=== PATIENT | female | born 1975 | race Hispanic/Latino ===

== ENCOUNTER 2017-08-31 14:37 | Observation (INO) | payer SELFPAY ==
[~2017-08-31 14:37] MED LIST: ISOVUE-370 76%-LOCM 1 ML ONE
[2017-08-31] MEDS ORDERED: Lorazepam 2 MG/ML VIAL ONE (15:00)
[2017-08-31 15:13] LABS: #Basophils 0.1 thou/uL (0.0-0.2); #Lymphocytes 2.7 thou/uL (1.20-3.40); #Monocytes 0.7 thou/uL (0.11-0.59); #Neutrophils 8.3 thou/uL (1.40-6.50); %Basophils 0.6 % (0.0-1.0); %Eosinophils 0.2 % (0.0-10.0); %Lymphocytes 22.6 % (21.0-51.0); %Monocytes 6.2 % (0.0-10.0); Hematocrit 44.6 % (36.0-47.0); Red Blood Cell (RBC) Count 5.27 mill/uL (4.20-5.40); White Blood Cell (WBC) Count 11.8 thou/uL (4.8-10.8)
[2017-08-31 15:28] LABS: ALT (SGPT) 890 U/L (8-55); AST (SGOT) 357 U/L (5-34); Alkaline Phosphatase 313 U/L (40-150); Anion Gap 19 mmol/L (10-20); BUN (Urea Nitrogen) 13 mg/dL (7.0-18.7); Bilirubin, Total 3.1 mg/dL (0.2-1.2); CK (CPK) 52 U/L (29-168); Calc. Creatinine Clearance 0 mL/min (70-130); Carbon Dioxide 22 mmol/L (22-29); Chloride 100 mmol/L (98-107); Estimated GFR-MDRD 88; Globulin 3.7 g/dL (2.4-3.5); Protein, Total 7.9 g/dL (6.0-8.3)
[2017-08-31] MEDS ORDERED: Potassium Chloride 20 MEQ TAB ONE (15:50)
[2017-08-31] MEDS ORDERED: Ondansetron HCl/PF 4 MG/2 ML Vial ONE (15:50)
--- NOTE | 2017-08-31 16:11 | CT ---
CT ABDOMEN AND PELVIS WITH IV CONTRAST: Date: 08/31/17 HISTORY: Abdominal pain. Recent cholecystectomy. FINDINGS: Lung bases are clear. The gallbladder is surgically absent. There is distention of the intrahepatic biliary system. Common bile duct is 1.1 cm diameter. Postoperative changes of the anterior abdominal wall and intra-abdominal fat are apparent. Fat protrudes into an umbilical hernia. Follicles arise from the ovaries. Urinary bladder is incompletely distended. IMPRESSION: 1. Biliary distention is greater than would normally be expected in a recent status post cholecyste ctomy patient. Clinical correlation regarding other signs and symptoms of central biliary obstructio n is required. Gastroenterologic consult could be considered. 2. Fat-containing umbilical hernia. POS: RANDEE
[2017-08-31 16:29] LABS: Bilirubin Negative (Negative); Blood, Urine Small (Negative); Glucose, Urine (Dipstick) Negative (Negative); Ketone, Urine 40 mg/dL (Negative); Nitrite Negative (Negative); Protein, Urine (Dipstick) Negative (Neg-Trace)
[2017-08-31 16:31] LABS: Bacteria/HPF None Seen HPF (None Seen); Hyaline Casts/LPF 0-3 HYALINE CAST LPF (0-3 Hyaline); RBC/HPF 0-3 HPF (0-3); Squamous Epithelial 0-3 HPF (0-3); WBC/HPF 0-3 HPF (0-3)
[2017-08-31 16:38] LABS: Amphetamine Not Detected (NotDetected); Methadone Not Detected (NotDetected); Methamphetamine Not Detected (NotDetected)
[2017-08-31] MEDS ORDERED: Ondansetron HCl/PF 4 MG/2 ML Vial IVP PRN (18:22)
[2017-08-31] MEDS ORDERED: Sodium Chloride 0.9% 1,000 ML IV SCH (18:30)
--- NOTE | 2017-08-31 19:53 | HP ---
PRIMARY CARE PHYSICIAN: Darleen Klein M.D. CHIEF COMPLAINT: Abdominal pain. HISTORY OF PRESENT ILLNESS: Ms. Oneil is a pleasant 42-year-old lady who was seen at [facility] on 08/31/2017. She initially presented to the emergency room in [facility] to severe abdominal pain. She has now received pain medications and has slightly improved. She reports that 6 days ago she developed right upper quadrant pain. She describes the pain as a sh shlomo, cannot 10/10 at its worst, on and off, worse with eating, no known relieving factors, radiating to the back and accompanied by nausea and vomiting. She was seen at [facility] and was subsequently referred to [facility]. The next day, she underwent laparoscopic cholecystect manuelito. She reports that the pain was not really improved following the surgery. She denies any fever s. She reports that the pain is still intermittent, as described above. She came to the emergency room today because she was having ongoing pain. REVIEW OF SYSTEMS: The following complete review of systems was negative, unless otherwise mentione d in the HPI or below: Constitutional: Weight loss or gain, sense of well-being, ability to conduct usual activities, exer cise tolerance. Skin/Breast: Rash, itching, changes in hair growth or loss, nail changes, breast lumps, tenderness, swelling, nipple discharge. Eyes: Vision, double vision, tearing, blind spots, pain. ENT/Mouth: Headaches (location, time of onset, duration, precipitating factors), vertigo, lighthead edness, injury. Vision, double vision, tearing, blind spots, pain, nose bleeding, colds, obstruction , discharge, dental difficulties, gingival bleeding, dentures, neck stiffness, pain, tenderness, mas ses in thyroid or other areas. Cardiovascular: Precordial pain, substernal distress, palpitations, syncope, dyspnea on exertion, o rthopnea, nocturnal paroxysmal dyspnea, edema, cyanosis, hypertension, heart murmurs, varicosities, phlebitis, claudication. Respiratory: Pain, shortness of breath, wheezing, stridor, cough, hemoptysis, fever or night sweats . Gastrointestinal: Poor appetite, dysphagia, indigestion, abdominal pain, heartburn, eructation, lora sea, vomiting, hematemesis, jaundice, constipation, or diarrhea, abnormal stools (kale-colored, norberto y, bloody, greasy, foul smelling), flatulence, hemorrhoids, recent changes in bowel habits. Genitourinary: Urgency, frequency, dysuria, nocturia, hematuria, polyuria, oliguria, unusual (or ch rubne in) color of urine, stones, hesitancy, change in size of stream, dribbling, acute retention or incontinence, libido, potency. Musculoskeletal: Pain, swelling, redness or heat of muscles or joints, limitation, of motion, muscu lar weakness, atrophy, cramps. Neurologic/Psychiatric: Convulsions, paralyses, tremor, incoordination, paresthesias, difficulties with memory of speech, sensory or motor disturbances, or muscular coordination (ataxia, tremor), emo tional problems, anxiety, depression, previous psychiatric care, unusual perceptions, hallucinations . Allergy/Immunologic: Skin rash, anemia, bleeding tendency, polydipsia, polyuria, intolerance to hea t or cold. PAST MEDICAL HISTORY: Significant for cholecystitis, status post laparoscopic cholecystectomy; and a skin disorder for which she has been diagnosed in the past with eczema versus fungal infection alana miladys psoriasis. PAST SURGICAL HISTORY: Significant for laparoscopic cholecystectomy and appendectomy. PSYCHIATRIC HISTORY: None. FAMILY HISTORY: Significant for coronary artery disease in several family members. SOCIAL HISTORY: The patient denies tobacco use, alcohol use or recreational drug use. ALLERGIES: PHENERGAN. CURRENT MEDICATIONS: None. PHYSICAL EXAMINATION: GENERAL: On examination, Ms. Oneil is awake and alert, not in acute distress. VITAL SIGNS: Blood pressure is 110/63, pulse is 83. She is breathing at rate of 16, and saturating 94% on room air. She is afebrile. EYES: She has scleral icterus. No conjunctival pallor. ENT: Moist mucosal membranes, no oropharyngeal erythema or exudates. NECK: Supple, nontender, normal range of movement, trachea is midline. RESPIRATORY: Accessory muscles of breathing are not active. Chest wall movements are symmetric leidy aterally. LUNGS: Clear to auscultation without wheeze, rhonchi or crepitations. CARDIOVASCULAR: S1 and S2 are heard, regular. LUNGS: Peripheral pulses palpable. No pericardial rub, no carotid bruit. ABDOMEN: Mild right upper quadrant tenderness, no guarding or rigidity, bowel sounds heard, no hepa tomegaly, no splenomegaly. NEUROLOGIC: Cranial nerves II-XII are intact. Deep tendon reflexes are 2+. MUSCULOSKELETAL: Power is 5/5 in all 4 extremities, normal range of movement at all major extremity joints. SKIN: No rashes or subcutaneous nodules. LYMPHATIC: No cervical lymphadenopathy. PSYCHIATRIC: Normal mood, normal affect, patient is oriented to time, place, and person. LABORATORY DATA AND IMAGING: Ms. Oneil' labs and investigations were reviewed. She had an magaly ctrocardiogram, which shows normal sinus rhythm, no ST changes to suggest an acute coronary syndrome . She also had a CT scan of the abdomen and pelvis, which showed biliary distention that is greater than normally expected in a recent status post cholecystectomy patient, according to radiologist. Laboratory investigation show a normal sodium, decreased potassium of 3.1, elevated total bilirubin of 3.1, elevated AST of 357, elevated ALT of 890, elevated alkaline phosphatase of 313, normal creat ine kinase, leukocytosis with 11,800 white cells, of which 70% are neutrophils, normal hemoglobin, n ormal platelet count. Urinalysis positive for ketones and small amount of blood and urine toxicolog y screen positive for benzodiazepines. ASSESSMENT AND PLAN: Ms. Oneli is a pleasant 42-year-old lady who was seen at [facility] on 08/31/2017. Her problem list includes: 1. Abdominal pain: The etiology is unclear, could be secondary to choledocholithiasis from retaine d gallstones. She will be admitted to the hospital and treated with pain medications. Gastroentero logy service will be consulted for further opinion and help with further management. 2. Abnormal liver function tests: Likely secondary to choledocholithiasis. She is not febrile at this time. Postoperative infection is also a possibility, given leukocytosis. We will start Ms. Magdiel saenz on empiric antibiotics. 3. Hypokalemia: Replace potassium. Many thanks for allowing me to participate in your patient's care. Please feel free to contact me w ith any questions or concerns. LEVEL OF RISK: Moderate. LEVEL OF COMPLEXITY: Moderate.
[2017-08-31] MEDS: Ketorolac Tromethamine 30 MG/ML VIAL IVP PRN (20:04)
[2017-08-31] MEDS: NS 0.9% w/ 40 MEQ KCL 1,000 ML IV SCH (20:08)
[2017-08-31] MEDS: metroNIDAZOLE 500 MG in Premix Bag 1 BAG IVPB SCH (20:09)
[2017-08-31] MEDS ORDERED: cefTRIAXone\\ROCEPHIN 1 GM in Sodium Chloride 0.9% 100 ML IVPB SCH (21:00)
[2017-08-31 22:40] VITALS: BMI 39.9
--- NOTE | 2017-08-31 23:18 | CON ---
GI INPATIENT CONSULTATION NOTE DATE OF CONSULTATION: 08/31/2017 REQUESTING PHYSICIAN: Alonzo Rachel M.D. REASON FOR CONSULTATION: Probable choledocholithiasis. HISTORY OF PRESENT ILLNESS: Ms. Ned Oneil is a 42-year-old woman with the past medical hi story of appendectomy. She underwent laparoscopic cholecystectomy at the [facility] 4 days ago. She recalls that she had fairly acute onset of right upper quadrant abdominal pain radiating t o the back associated with nausea and vomiting and was found to have cholelithiasis and cholecystiti s and the following day as an outpatient underwent laparoscopic cholecystectomy. She was discharged home the same day with pain medications, but she reports that her presenting pain never really reso lved at all. She continued to have pain, nausea and vomiting. This acutely worsened even more toda y and she also noticed darkening of her urine, so she presented to the Emergency Department here. L aboratory evaluation demonstrated elevated liver function tests with a total bilirubin of 3.1 and T up to 890. She also has a mild leukocytosis to 11.[address] imaging demonstrates biliary dilation to 1.1 cm with intrahepatic biliary dilation as well, certainly greater than expected for recent cho lecystectomy. She is admitted with suspicion of choledocholithiasis and we are consulted for consid eration of endoscopic retrograde cholangiopancreatography. She has currently received Toradol, ceft riaxone and metronidazole. Her pain is a bit better, but she is still hurting. REVIEW OF SYSTEMS: Full review of systems including constitutional, head, eyes, ears, nose, throat, GI, , cardiovascular, respiratory, musculoskeletal and neurologic systems are negative except as noted in the HPI. PAST MEDICAL HISTORY: Appendectomy and cholecystectomy on 08/27/2017. ALLERGIES: PROMETHAZINE. OUTPATIENT MEDICATIONS: None. INPATIENT MEDICATIONS: Ceftriaxone IV, metronidazole IV, Toradol and Zofran. SOCIAL HISTORY: No smoking, alcohol or drug use. FAMILY HISTORY: Noncontributory. PHYSICAL EXAMINATION: VITAL SIGNS: Temperature 98.2, pulse 94 and 98% oxygen saturation on room air. GENERAL: A 42-year-old woman lying in bed in mild discomfort from abdominal pain MENTAL: Alert and fully oriented, pleasant and conversational, gives a detailed coherent history. SKIN: No rashes were palpable. No jaundice. EYES: Mild scleral icterus. Extraocular movements are intact. ENT: Mucous membranes are moist. No oral lesions. LYMPH: No submandibular or supraclavicular lymphadenopathy. THYROID: Nontender to palpation. HEART: Regular rate and rhythm. LUNGS: Clear to auscultation bilaterally. ABDOMEN: Bowel sounds are hypoactive and nondistended. Surgical incisions healing well, soft, tend er to palpation in the right upper quadrant. No guarding or rebound tenderness. EXTREMITIES: No peripheral edema. VESSELS: Radial pulses 2+ bilaterally. NEUROLOGICAL: Cranial nerves II-XII are intact bilaterally. No focal deficits. LABORATORY STUDIES: WBC 11.8, hemoglobin 14.5 and platelets 382. Sodium 138, potassium 3.1, BUN 13 , creatinine 0.73, total bilirubin 3.1, alkaline phosphatase 313, AST 890, ALT 357 and albumin 4.2. Urinalysis negative. Urine drug screen positive for benzodiazepines. IMAGING STUDIES: CT of the abdomen demonstrates biliary dilation to 1.1 cm with intrahepatic dilati on, greater degree of dilation than expected for recent cholecystectomy. She also has a fat contain ing umbilical hernia. ASSESSMENT AND PLAN: 1. Right upper quadrant abdominal pain, post cholecystectomy. 2. Elevated liver function tests. 3. Common bile duct dilation. Her presentation is certainly consistent with a high probability of choledocholithiasis. I suspect retained stone or sludge in the distal common bile duct. We will plan to proceed with endoscopic re trograde cholangiopancreatography tomorrow. I discussed the procedure in detail with the patient in cluding the risks of the procedure, which would include post-endoscopic retrograde cholangiopancreat ography pancreatitis, bleeding or perforation or failure of the procedure. The patient desires to p roceed. In the meantime, continue with pain control and I agree with the IV antibiotics as well giv en the leukocytosis. Further recommendations following endoscopic retrograde cholangiopancreatograp hy tomorrow. Thank you for the consultation. Please call back with questions or concerns.
[2017-09-01] MEDS: metroNIDAZOLE 500 MG in Premix Bag 1 BAG IVPB SCH ×2 (03:35→12:37)
[2017-09-01] MEDS: Ketorolac Tromethamine 30 MG/ML VIAL IVP PRN (03:35)
[2017-09-01 05:47] LABS: #Basophils 0.1 thou/uL (0.0-0.2); #Lymphocytes 2.5 thou/uL (1.20-3.40); #Monocytes 0.7 thou/uL (0.11-0.59); #Neutrophils 5.4 thou/uL (1.40-6.50); %Basophils 0.8 % (0.0-1.0); %Eosinophils 0.5 % (0.0-10.0); %Lymphocytes 28.5 % (21.0-51.0); %Monocytes 8.1 % (0.0-10.0); Hematocrit 40.5 % (36.0-47.0); Mean Platelet Volume 6.9 fL (7.4-10.4); Red Blood Cell (RBC) Count 4.71 mill/uL (4.20-5.40); White Blood Cell (WBC) Count 8.7 thou/uL (4.8-10.8)
[2017-09-01 06:02] LABS: Anion Gap 11 mmol/L (10-20); BUN (Urea Nitrogen) 11 mg/dL (7.0-18.7); Calc. Creatinine Clearance 195 mL/min (70-130); Calcium 9.1 mg/dL (7.8-10.44); Carbon Dioxide 27 mmol/L (22-29); Chloride 104 mmol/L (98-107); Estimated GFR-MDRD Greater than 90
[2017-09-01 06:06] LABS: ALT (SGPT) 734 U/L (8-55); AST (SGOT) 232 U/L (5-34); Alkaline Phosphatase 279 U/L (40-150); Bilirubin, Direct 0.7 mg/dL (0.1-0.3); Bilirubin, Total 1.2 mg/dL (0.2-1.2); Lipase 17 U/L (8-78); Protein, Total 6.5 g/dL (6.0-8.3)
[2017-09-01] MEDS ORDERED: FLU VACC QS2017-18 36 mo. & older 0.5 ML SYRINGE IM ONE (09:00)
[2017-09-01] MEDS: NS 0.9% w/ 40 MEQ KCL 1,000 ML IV SCH ×2 (10:34→22:29)
[2017-09-01] MEDS ORDERED: Fentanyl 100 MCG/2 ML VIAL ONE ×2 (11:49→12:09)
[2017-09-01] MEDS ORDERED: Iothalamate Meglumine 60% 50 ML VIAL FS ONE (11:55)
[2017-09-01] MEDS ORDERED: Midazolam HCl 2 mg/2 ml Vial ONE (12:01)
[2017-09-01] MEDS ORDERED: Indomethacin 50 MG SUPP ONE ×2 (12:20→12:41)
[2017-09-01] MEDS ORDERED: Propofol 200 MG/20 ML VIAL ONE (12:25)
[2017-09-01] MEDS ORDERED: Ondansetron HCl/PF 4 MG/2 ML Vial ONE (12:25)
[2017-09-01] MEDS ORDERED: Ketorolac Tromethamine 30 MG/ML VIAL ONE (12:25)
[2017-09-01] MEDS ORDERED: Glycopyrrolate 0.2 MG/ML 5 ML SYRINGE ONE (12:25)
[2017-09-01] MEDS ORDERED: Lidocaine 2% PF 10 ML AMP (For Epidural Use) ONE (12:25)
[2017-09-01] MEDS ORDERED: Lidocaine 1% PF 5 ML VIAL ONE (12:41)
[2017-09-01] MEDS ORDERED: Ondansetron HCl/PF 4 MG/2 ML Vial IVP PRN (13:24)
[2017-09-01] MEDS ORDERED: Meperidine HCl/PF 25 MG/ML VIAL SLOW IVP PRN (13:24)
--- NOTE | 2017-09-01 13:37 | OP ---
GI ENDOSCOPY NOTE DATE OF PROCEDURE: 09/01/2017 SURGEON: Alonzo Smalls M.D. HARD [employer] HAND ENGRAVER SURGEON: None. PROCEDURE: Endoscopic retrograde cholangiopancreatography with biliary sphincterotomy and stone ext raction. INDICATIONS: 1. Right upper quadrant pain. 2. Elevated liver function tests. 3. Common bile duct dilation, suspicious for choledocholithiasis. MEDICATIONS: 1. See anesthesia record. 2. Indomethacin 100 mg per rectum. FINDINGS: After discussion of the risks, benefits and alternatives of the procedure, informed conse nt was obtained and witnessed. Pre-endoscopic cardiopulmonary examination was satisfactory. Timeou t was performed before sedation was achieved. Sedation was achieved with anesthesia assistance in [facility] endoscopy unit. The patient was endotracheally intubated. She was placed in a semiprone positio n on the fluoroscopy table. A Pentax adult side-viewing duodenoscope was advanced through the mouth and beyond the stomach into the second portion of the duodenum. The ampulla was brought into view with the endoscope in the short position. The ampulla appeared normal. There was some free flow of bile seen prior to cannulation. We used a triple lumen dome tip sphincterotome and 0.035 guidewire to selectively cannulate the common bile duct. The guidewire was passed up into the right intrahep atic system. Cholangiogram was then performed. This demonstrated what appeared to be two larger fi lling defects within the mid common bile duct as well as a suggestion of smaller filling defects rep resenting sludge in the distal common bile duct. At this point, a biliary sphincterotomy was perfor med. The sphincterotome was exchanged for an 8-12 mm extraction balloon. Multiple sweeps were made of the common bile duct with the balloon partially and fully inflated. In this fashion, we success fully extracted some biliary sludge as well as 2 yellow pigmented stones from the common bile duct. Occlusion cholangiogram appear to demonstrate no further filling defects in the common bile duct. One final balloon sweep was made of the common bile duct to sweep out excess contrast agent. The wo rking apparatus was then withdrawn. The endoscope was then withdrawn suctioning out excess air and fluid and the procedure was complete. The patient received 100 mg of rectal indomethacin as prophyl axis against post-ERCP pancreatitis. She tolerated the procedure well. There were no immediate pos t-procedure complications. IMPRESSION: Choledocholithiasis, now status post successful biliary sphincterotomy and balloon extr action of sludge and 2 yellow pigmented stones. RECOMMENDATIONS: 1. Clear liquid diet, then advance as tolerated later today. 2. Monitor for potential post-ERCP complications, including pancreatitis.
--- NOTE | 2017-09-01 13:38 | RAD ---
TWO VIEWS ABDOMEN: HISTORY: A 42-year-old who is having an ERCP. FINDINGS: Two intraoperative images obtained demonstrate catheterization and injection of the common bile duct . There is some debris seen in the distal common bile duct. The balloon is insufflated and the kuldip ris is stripped out of the distal common bile duct. Surgical clips seen in the gallbladder fossa. IMPRESSION: Findings compatible with distal common bile duct debris including sludge and/or stones. POS: RANDEE
--- NOTE | 2017-09-01 13:53 | EKG ---
Test Reason : Blood Pressure : / mmHG Vent. Rate : 078 BPM Atrial Rate : 078 BPM P-R Int : 144 ms QRS Dur : 102 ms QT Int : 384 ms P-R-T Axes : 025 032 002 degrees QTc Int : 437 ms Normal sinus rhythm Possible Inferior infarct , age undetermined Abnormal ECG Confirmed by MCKENZIE GIFFORD, RUPERTO Santana ([id number]), acquisition editor WILSON CALVO ([id number]) on 09/01/2017 1:53:34 PM Referred By: Confirmed By:RUPERTO RINCON MD
--- NOTE | 2017-09-01 16:53 | PDOC.PN ---
- Subjective Encounter Start Date: 09/01/17 Encounter Start Time: 09:20 Pt seen for followup re: abdo pain. Pain better, no chest pain, shortness of breath, fevers or chills. - Objective MAR Reviewed: Yes Vital Signs & Weight: Vital Signs (12 hours) Temp Pulse Resp BP Pulse Ox 09/01/17 14:10 97.4 F L 57 L 16 138/83 95 09/01/17 08:00 98.4 F 69 16 119/83 94 L Weight Weight 240 lb 4.862 oz I&O: 08/31/17 09/01/17 09/02/17 06:59 06:59 06:59 Intake Total 303 Balance 303 Result Diagrams: 09/01/17 04:51 09/01/17 04:51 Phys Exam - Physical Examination Obese HEENT: moist MMs Respiratory: clear to auscultation bilateral Cardiovascular: RRR Gastrointestinal: soft, non-tender, positive bowel sounds distention+ Musculoskeletal: pulses present Neurological: moves all 4 limbs Psychiatric: normal affect Dx/Plan (1) Abdominal pain Code(s): R10.9 - UNSPECIFIED ABDOMINAL PAIN Status: Acute (2) Choledocholithiasis Code(s): K80.50 - CALCULUS OF BILE DUCT W/O CHOLANGITIS OR CHOLECYST W/O OBST Status: Suspected (3) Hypokalemia Code(s): E87.6 - HYPOKALEMIA Status: Resolved - Plan continue antibiotics, out of bed/ambulate, DVT proph w/SCDs * . Change antibiotics to oral. Await ERCP. LFTs improving. Likely home 1-2 days. Review of Systems - Review of Systems Constitutional: negative: Fever, Chills, Sweats, Weakness, Malaise Cardiovascular: negative: Chest Pain, Palpitations, Orthopnea, Paroxysmal Noc. Dyspnea, Edema, Light Headedness Gastrointestinal: negative: Nausea, Vomiting, Abdominal Pain, Diarrhea, Constipation, Melena, Hematochezia - Medications/Allergies Allergies/Adverse Reactions: Allergies Allergy/AdvReac Type Severity Reaction Status Date / Time promethazine [From Phenergan] Allergy Verified 08/31/17 18:21 Medications: Current Medications Ciprofloxacin (Cipro) 500 mg PO 0600,2000 SARAHI Potassium Chloride/Sodium Chloride (Ns 0.9% W/ 40 Meq Kcl) 1,000 mls @ 75 mls/ hr IV .[id number] [facility] Last Admin: 09/01/17 10:34 Dose: Not Given Ketorolac Tromethamine (Toradol) 15 mg IVP Q6H PRN PRN Reason: Pain Stop: 09/05/17 18:23 Last Admin: 09/01/17 03:35 Dose: 15 mg Metronidazole (Flagyl) 500 mg PO TID [facility] Morphine Sulfate (Morphine Sulfate) 2 mg SLOW IVP Q6H PRN PRN Reason: Pain Last Admin: 09/01/17 11:27 Dose: 2 mg Sodium Chloride (Flush - Normal Saline) 10 ml IVF Q12HR [facility] Last Admin: 09/01/17 09:12 Dose: Not Given Sodium Chloride (Flush - Normal Saline) 10 ml IVF PRN PRN PRN Reason: Saline Flush
[2017-09-01] MEDS: Ciprofloxacin 500 MG TAB PO SCH (20:02)
[2017-09-01] MEDS: metroNIDAZOLE 500 MG TAB PO SCH (20:02)
[2017-09-02] MEDS: Ketorolac Tromethamine 30 MG/ML VIAL IVP PRN ×2 (00:17→07:21)
[2017-09-02] MEDS: Ciprofloxacin 500 MG TAB PO SCH (05:34)
[2017-09-02 06:00] LABS: #Basophils 0.1 thou/uL (0.0-0.2); #Lymphocytes 2.9 thou/uL (1.20-3.40); #Monocytes 0.8 thou/uL (0.11-0.59); #Neutrophils 6.1 thou/uL (1.40-6.50); %Basophils 0.7 % (0.0-1.0); %Eosinophils 0.4 % (0.0-10.0); Mean Platelet Volume 6.8 fL (7.4-10.4); Red Blood Cell (RBC) Count 4.65 mill/uL (4.20-5.40); White Blood Cell (WBC) Count 9.9 thou/uL (4.8-10.8)
[2017-09-02 06:17] LABS: Anion Gap 11 mmol/L (10-20); BUN (Urea Nitrogen) 13 mg/dL (7.0-18.7); Calc. Creatinine Clearance 208 mL/min (70-130); Carbon Dioxide 26 mmol/L (22-29); Chloride 104 mmol/L (98-107); Estimated GFR-MDRD Greater than 90
[2017-09-02 06:21] LABS: ALT (SGPT) 518 U/L (8-55); AST (SGOT) 84 U/L (5-34); Alkaline Phosphatase 217 U/L (40-150); Bilirubin, Direct 0.5 mg/dL (0.1-0.3); Bilirubin, Total 0.7 mg/dL (0.2-1.2); Protein, Total 6.4 g/dL (6.0-8.3)
[2017-09-02] MEDS: metroNIDAZOLE 500 MG TAB PO SCH (08:28)
--- NOTE | 2017-09-02 09:40 | PRG ---
DATE OF SERVICE: 09/02/2017 SUBJECTIVE: Ms. Oneil is feeling pretty good this morning. Last night, she did awaken with so me epigastric burning pain, but after a lot of belching, this completely resolved. She is not havin g any nausea or vomiting. She was able to tolerate solid food for dinner last night with no issues. She has remained hemodynamically stable. OBJECTIVE: VITAL SIGNS: Temperature 98.7, pulse 60, blood pressure 110/77, 97% oxygen saturation on room air. GENERAL: No acute distress. HEART: Regular rate and rhythm. LUNGS: Clear to auscultation bilaterally. ABDOMEN: Soft. Bowel sounds active. Some tenderness to palpation in the epigastrium, but no guard ing, rebound tenderness. EXTREMITIES: No peripheral edema. LABORATORY STUDIES: WBC down to 9.9, hemoglobin 13.0, platelets 319. Sodium 138, potassium 3.4, BU N 13, creatinine 0.62, glucose 114. LFTs have declined further with total bilirubin 0.7, direct leidy irubin 0.5, alkaline phosphatase 217, AST 84, ALT 518. ASSESSMENT AND PLAN: 1. Choledocholithiasis, now status post successful biliary sphincterotomy and extraction of two sto lisbet from the common bile duct yesterday. 2. Elevated liver function tests, improving after ERCP. 3. Upper abdominal pain, improving. There is no evidence of post-ERCP pancreatitis. Overall, the patient is doing well and tolerating her diet. I think if she is doing okay the rest of the morning , she could be discharged home from a GI perspective. GI will sign off, but please call back with questions or concerns.
[2017-09-02] MEDS ORDERED: Potassium Chloride 20 MEQ TAB PO SCH (11:15)
[2017-09-02 11:18] VITALS: BP 116/82; TEMP 98
--- NOTE | 2017-09-02 11:45 | DIS ---
DATE OF ADMISSION: 08/31/2017 DATE OF DISCHARGE: 09/02/2017 PRIMARY CARE PROVIDER: Darleen Klein M.D. DISCHARGE DIAGNOSES: 1. Choledocholithiasis. 2. Endoscopic retrograde cholangiopancreatography with biliary sphincterotomy and stone extraction done during this hospitalization. CONDITION OF PATIENT AT THIS TIME OF DISCHARGE: Stable. I assessed Ms. Oneil on the day of r. She denies any chest pain or shortness of breath. Vital signs are stable. S1 and S2 are heard, regular. Lungs are clear to auscultation bilaterally. DISCHARGE MEDICATIONS: Ciprofloxacin 500 mg 2 times a day for 5 days, metronidazole 500 mg 3 times a day for 5 days. Side effects of medications, including tendonitis and tendon ruptures were discus sed with the patient. Patient stated understanding. HOSPITAL COURSE: Ms. Oneil is a pleasant 42-year-old lady who was admitted to [facility] for abdominal pain on 08/31/2017. She had abnormal liver function tests. CT scan of the abdomen and pelvis showed biliary distention than would normally be expected in a recent [facility] post cholecystectomy patient. Patient had undergone cholecystectomy a few days prior to this ad mission. She also had leukocytosis at the time of admission. She was started on antibiotics for po tential postoperative infection. GI Service was also consulted for possible choledocholithiasis. S he underwent ERCP, as described above. Her liver function tests started improving. She was stepped down to oral antibiotics and is being discharged home in a stable condition. She is advised to follow up with her primary care physician in 3-5 days. Many thanks for allowing me to participate in your patient's care. Please feel free to contact me w ith any questions or concerns. DISCHARGE DESTINATION: Home.
--- NOTE | 2017-09-02 15:29 | ADD-DIS ---
ADDENDUM On the day of discharge, Ms. Calle has white count of 9,900; hemoglobin 13, platelet count 319,0 00. Sodium 138, potassium 3.4, which is being replaced prior to discharge, creatinine 0.62, total b ilirubin 0.7, direct bilirubin 0.5, AST 84, ALT 518, and alkaline phosphatase 217. Lipase is 49.
== END 2017-09-02 12:36 | disposition home or self-care (01) ==
LOC: ERS 14:37 → SURG A 17:52
PROVIDERS: ADMIT Internal Medicine; ATTEND Internal Medicine
PROC: 0F798ZZ Dilation of Common Bile Duct, Via Natural or Artificial Opening Endoscopic (ICD-10-PCS; principal; 2017-09-02)
PROC: 0FC98ZZ Extirpation of Matter from Common Bile Duct, Via Natural or Artificial Opening Endoscopic (ICD-10-PCS; 2017-09-02)
DX: K80.50 Calculus of bile duct without cholangitis or cholecystitis without obstruction (principal); E87.6 Hypokalemia; Z88.8 Allergy status to other drugs, medicaments and biological substances; Z90.49 Acquired absence of other specified parts of digestive tract
CPT/HCPCS: 36415; 51701; 74177; 74330; 80048; 80053; 80076; 80306; 81003; 81015; 82550; 83690; 84703; 85025; 90471; 90682; 93005; 96361; 96365; 96366; 96367; 96374; 96375; 96376; A4353; G0008; G0378; J0696; J1610; J1885; J2001; J2060; J2250; J2270; J2405; J2704; J3010; J7050; Q2036; Q9961

== ENCOUNTER 2018-08-16 11:02 | Emergency (ER) | payer OTHER ==
[2018-08-16] MEDS ORDERED: Ondansetron HCl/PF 4 MG/2 ML Vial ONE (11:35)
[2018-08-16] MEDS ORDERED: Morphine 4 MG/ML VIAL ONE (11:35)
[2018-08-16 11:57] LABS: #Basophils 0.1 thou/uL (0.0-0.2); #Lymphocytes 2.2 thou/uL (1.20-3.40); #Monocytes 0.5 thou/uL (0.11-0.59); #Neutrophils 6.6 thou/uL (1.40-6.50); %Basophils 0.7 % (0.0-1.0); %Eosinophils 0.4 % (0.0-10.0); %Lymphocytes 23.2 % (21.0-51.0); %Monocytes 5.1 % (0.0-10.0); %Neutrophils 70.6 % (42.0-75.0); Hemoglobin 13.1 g/dL (12.0-16.0); Mean Corpuscular HGB CONC 32.2 g/dL (32.0-36.0); Mean Corpuscular Hemoglobin 25.8 pg (27.0-31.0); Platelet Count 367 thou/uL (130-400); RBC Distribution Width 13.4 % (11.5-14.5); White Blood Cell (WBC) Count 9.3 thou/uL (4.8-10.8)
[2018-08-16 12:02] LABS: BHCG - Serum Negative (NEGATIVE); Pregs Control Background? CLEAR/WHITE (CLR/WHITE); Pregs Control Bar Appear? YES (CONTROL BAR)
[2018-08-16 12:12] LABS: ALT (SGPT) 21 U/L (8-55); AST (SGOT) 12 U/L (5-34); Albumin 3.9 g/dL (3.5-5.0); Alkaline Phosphatase 56 U/L (40-150); Anion Gap 10 mmol/L (10-20); BUN (Urea Nitrogen) 10 mg/dL (7.0-18.7); Bilirubin, Total 0.3 mg/dL (0.2-1.2); Calc. Creatinine Clearance 0 mL/min (70-130); Calcium 8.8 mg/dL (7.8-10.44); Carbon Dioxide 24 mmol/L (22-29); Chloride 107 mmol/L (98-107); Estimated GFR-MDRD Greater than 90; Globulin 2.7 g/dL (2.4-3.5); Glucose 98 mg/dL (70-105); Lipase 16 U/L (8-78); Potassium 3.9 mmol/L (3.5-5.1); Protein, Total 6.6 g/dL (6.0-8.3); Sodium 137 mmol/L (136-145)
[2018-08-16 12:15] LABS: CKMB 0.5 ng/mL (0-6.6); Troponin I Less than 0.010 ng/mL (< 0.028)
[2018-08-16 13:12] LABS: Bilirubin Negative (Negative); Blood, Urine Trace (Negative); Clarity Clear (Clear); Glucose, Urine (Dipstick) Negative (Negative); Leukocyte Negative (Negative); Nitrite Negative (Negative); Protein, Urine (Dipstick) Negative (Neg-Trace); Urobilinogen 0.2 mg/dL (0.2-1.0)
[2018-08-16 13:25] LABS: Bacteria/HPF 2+ HPF (None Seen); RBC/HPF 0-3 HPF (0-3); WBC/HPF None Seen HPF (0-3)
--- NOTE | 2018-08-16 14:26 | CT ---
CONTRAST ENHANCED CT IMAGES OF ABDOMEN AND PELVIS: HISTORY: Evaluate for incarcerated hernia. FINDINGS: Contrast-enhanced CT images of the abdomen and pelvis were obtained. IV contrast was given. Unfortu nately, oral contrast was not given. The lung bases are unremarkable. No evidence of free intraperitoneal air is seen. CT is compared to a previous exam from 08/31/17. The liver and spleen are unremarkable. The gallbladder has been surgically removed. The pancreas is unremarkable. Again, supraumbilical anterior abdominal wall defect is seen with herniation of intraperitoneal fat i nto the subcutaneous fat. This is unchanged since the previous comparison CT from 08/31/17. No evide nce of bowel herniation is seen through the anterior abdominal wall hernia defect. No evidence of inguinal her hiatal hernia is seen. The pancreas is unremarkable. Adrenal gland and kidneys are unremarkable. No evidence of periaortic lymphadenopathy is seen. Left ovarian cyst or cystic lesion seen. Smaller right ovarian lesion is also seen. These are uncha nged since the previous exam for the most part; however, correlate with gynecologic evaluation of the se ovarian lesions. Incidentally noted descending colonic diverticulosis is seen. There does appear to be some mild fat stranding surrounding the sigmoid colon which was not previously present concerning for some minimal descending colonic diverticulitis. No definite evidence of an abscess seen. IMPRESSION: 1. Some minimally increasing descending colonic fat stranding possibly representing minimal divertic ulitis. 2. Supraumbilical anterior abdominal wall hernia is unchanged. 3. Bilateral ovarian cyst or cystic lesions. Gynecologic evaluation recommended. POS: [facility]
== END 2018-08-16 13:50 | disposition home or self-care (01) ==
LOC: SCSER 11:02
DX: K43.9 Ventral hernia without obstruction or gangrene (principal); E55.9 Vitamin D deficiency, unspecified; E03.9 Hypothyroidism, unspecified
CPT/HCPCS: 74177; 80053; 81003; 81015; 82553; 83605; 83690; 84484; 84703; 85025; 93005; 96361; 96374; 96375; J2270; J2405